=== PATIENT | male | born 1965 | race Native Hawaiian/Other Pacific Islander ===

== ENCOUNTER 2022-02-22 11:17 | Emergency (ER) | payer OTHER ==
[~2022-02-22] VITALS: Ht 182.9 cm; Wt 119.8 kg
[2022-02-22 11:21] VITALS: TEMP 97.2
[2022-02-22 12:08] LABS: PLATELET COUNT 240 K/uL (142-355)
[2022-02-22 12:20] LABS: POTASSIUM 3.7 mmol/L (3.6-5.2)
[2022-02-22 14:21] VITALS: BP 159/98
== END 2022-02-22 14:27 | disposition home or self-care (01) ==
LOC: ED 11:17
PROVIDERS: Internal Medicine
DX: K21.9 Gastro-esophageal reflux disease without esophagitis (principal)
CPT/HCPCS: 36415; 80053; 85027; 99283; Q9963